=== PATIENT | male | born 1955 | race Caucasian/White ===

== ENCOUNTER 2021-11-29 18:14 | Emergency (ER) | payer MEDICARE, SELFPAY ==
[2021-11-29 18:37] VITALS: BP 167/95; PULSE 79; RESP 20; TEMP 36.9; O2SAT 98; BMI 28.5
[2021-11-29] MEDS: Lidocaine HCl 2 % MPF 5 ML VIAL INFILTRATI (21:31)
--- NOTE | 2021-11-29 22:23 | ED.WOUNDLAC ---
HPI - Wound/Laceration General Chief Complaint: Wound/Laceration Stated Complaint: leg lac Time Seen by Provider: 11/29/21 20:15 Source: patient Mode of arrival: ambulatory History of Present Illness HPI narrative: 66-year-old male with no significant past medical history presenting to the ED complaining of laceration to left lower extremity s/p getting leg caught on a [employer] car door [employer]. States jumped out of a vehicle and leg got caught. reports tetanus is up-to-date. Denies injury to the area, head trauma, numbness/tingling Onset (ago): hour(s) Related Data Previous Rx's Medication Instructions Recorded cephalexin 500 mg capsule 500 mg PO QID 7 Days #28 cap 11/29/21 Allergies Allergy/AdvReac Type Severity Reaction Status Date / Time No Known Allergies Allergy Verified 11/29/21 21:34 Review of Systems Review of Systems: Constitutional: No Fever, No Chills ENT/Mouth: No Ear Pain, No Nasal Congestion, No sore throat, No Rhinorrhea Cardiovascular: No Chest Pain, No SOB Respiratory: No Cough, No Sputum Gastrointestinal: No Nausea, No Vomiting, No Diarrhea, No Constipation, No Abdominal pain Musculoskeletal: No joint pain, No Myalgias, No Joint Swelling Skin: +Laceration, No rash Neuro: No Weakness, No Numbness, No Paresthesias Yes all other systems are reviewed and are negative FOR[facility]LY [facility], [facility] Past Medical History Attestation statement: The following information was validated with the patient. Social History Social History Advance Directives: No Advance Directives Information Provided: Yes Physical Exam Vital Signs: Vital Signs: Last Vital Signs Temp 98.5 F 11/29/21 22:31 Pulse 69 11/29/21 22:31 Resp 16 11/29/21 22:31 BP 135/84 11/29/21 22:31 Pulse Ox 99 11/29/21 22:31 BMI result Body Mass Index 28.5 Const: General: cooperative, healthy appearing and no acute distress Orientation/consciousness: patient oriented x3 Limitations: no limitations HEENT: Head: Yes normal to inspection and Yes atraumatic Ears: hearing grossly normal bilaterally General nose exam: Normal external nose present Face and sinus: Yes normal facial exam Eyes: General: appearance normal, both eyes and all related structures EOM: EOMs intact bilaterally Neck: Neck: Yes normal visual inspection and Yes no meningeal signs Resp: Effort & Inspection: normal respiratory effort and no respiratory distress Cardio: Rate: regular rate GI: Inspection: Yes normal to inspection Palpation (GI): Soft to palpation, nontender, no guarding and not rigid Skin: Other: + 4 cm irregular flap laceration noted to lateral aspect of left distal tib-fib with subcu tissue visible. Bleeding controlled. No surrounding erythema. No streaking Rashes: no rashes Neuro: General: patient oriented x3, tone normal and no meningeal signs Gait exam (Neuro): Normal gait present Extrem: General: Yes normal to inspection MDM - Wound/Laceration MDM Narrative Medical decision making narrative: 66-year-old male with no significant past medical history presenting to the ED complaining of laceration to left lower extremity s/p getting leg caught on a [employer] car door [employer]. On exam vital signs stable, NAD/nontoxic appearing, physical exam as above. Will repair with ulcerations and give prophylactic antibiotics. Differential Diagnosis Differential diagnosis: Likely laceration and avulsion of skin Medical Records Attestation: I reviewed the patient's medical records. Lab Data Attestation: I reviewed the patient's lab results. Procedures Laceration Laceration 1: Site: lower extremity Side (If applicable): left Size (cm): 4 Description: flap and irregular Depth: simple, single layer Local Anesthetic: lidocaine 1% Amount of anesthesia used (mL): 5 Pre-repair: wound explored and irrigated extensively Skin layer closed with: nylon Size (cm): 4-0 Number of sutures: 8 Technique: simple, interrupted Discharge Plan Discharge Clinical Impression: Laceration Patient Disposition: Home, Self-Care Instructions: Laceration (DC) Additional Instructions: Your wound was repaired today in the emergency department, you need to return in 7-10 days for suture removal. Keflex as an antibiotic please take as prescribed. Keep area dry and clean. Apply topical bacitracin or Neosporin at home. Pat dry do not scrub If area begins to look infected, is red, there is drainage or streaking or you fever please return to the emergency department Prescriptions: New cephalexin 500 mg capsule 500 mg PO QID 7 Days Qty: 28 0RF Referrals: ED Physician,Generic [Physician] - (7-10 days for suture removal) Interventions: ED Discharge Assessment Last Done: 11/29/21 22:40 Discharge Date/Time: 11/29/21 22:44
[2021-11-29] MEDS: cephALEXin 500 MG CAPSULE PO (22:26)
[2021-11-29 22:31] VITALS: BP 135/84; PULSE 69; RESP 16; TEMP 36.9; O2SAT 99
== END 2021-11-29 22:44 | disposition home or self-care (01) ==
PROVIDERS: Emergency Provider Internal Medicine
DX: S81.812A Laceration without foreign body, left lower leg, initial encounter (principal); M79.605 Pain in left leg; W26.9XXA Contact with unspecified sharp object(s), initial encounter; Y93.9 Activity, unspecified; Y92.9 Unspecified place or not applicable; Y99.9 Unspecified external cause status; Z79.899 Other long term (current) drug therapy
CPT/HCPCS: 12002; 99283; 99284